=== PATIENT | female | born 1975 | race American Indian/Alaskan Native ===

== ENCOUNTER 2019-08-19 09:00 | Observation (INO) | payer OTHER ==
--- NOTE | 2019-08-17 09:21 | Anesthesia Consultation ---
Anesthesia Consult and Med Hx Date of service: 08/19/19 - Airway Anesthetic Teeth Evaluation: Good ROM Head & Neck: Adequate Mental/Hyoid Distance: Adequate Mallampati Class: Class III Intubation Access Assessment: Good - Pre-Operative Health Status ASA Pre-Surgery Classification: ASA1 Proposed Anesthetic Plan: General Nerve Block: TAP - Pulmonary Hx Smoking: No Hx Respiratory Symptoms: No (+2FS) - Central Nervous System Hx Psychiatric Problems: No - Hematic Hx Anemia: Yes - Other Systems Hx Alcohol Use: Yes (Occas) Hx Cancer: No
[2019-08-17 09:28] LABS: Basophils % (Auto) 0.7 % (0.0-1.8); Eosinophils # (Auto) 0.3 K/mm3 (0.0-0.4); Eosinophils % (Auto) 5.1 % (0.0-4.3); Hematocrit 37.7 % (30.3-42.9); Hemoglobin 12.2 gm/dl (10.1-14.3); Lymphocytes # (Auto) 2.1 K/mm3 (1.2-5.4); Lymphocytes % (Auto) 39.8 % (13.4-35.0); Mean Corpuscular HGB Conc 32 % (30-34); Mean Corpuscular Volume 85 fl (79-97); Monocytes # (Auto) 0.5 K/mm3 (0.0-0.8); Monocytes % (Auto) 8.7 % (0.0-7.3); Platelet Count 341 K/mm3 (140-440); Red Blood Count 4.42 M/mm3 (3.65-5.03); Red Cell Distribution Width 14.6 % (13.2-15.2)
--- NOTE | 2019-08-19 06:29 | Anesthesia Day of Surgery ---
Anesthesia Day of Surgery - Day of Surgery Patient Examined: Yes Patient H&P Reviewed: Yes Patient is NPO: Yes Beta Blockers: No Cardiac Clearance: No Pulmonary Clearance: No Adrian's Test: N/A
--- NOTE | 2019-08-19 07:16 | History and Physical Report ---
History of Present Illness Date of examination: 08/19/19 Date of admission: August 19, 2019 Chief complaint: Dysfunctional uterine bleeding and chronic pelvic pain History of present illness: 44-year-old -0-0-2 with a history of dysfunctional uterine bleeding and c hronic pelvic pain. The patient underwent a pelvic ultrasound with a mildly enlarged uterus with evidence of leiomyomas. She has attempted medical management without significant improvement of her symptoms. The patient is elected to undergo definitive surgical management. Past History Past Medical History: other (Obesity) Past Surgical History: section, myomectomy Social history: - Obstetrical History : 2 Para: 2 Hx # Term Pregnancies: 2 Number of Pregnancies: 0 Spontaneous Abortions: 0 Induced : 0 Number of Living Children: 2 Medications and Allergies Allergies Allergy/AdvReac Type Severity Reaction Status Date / Time acetaminophen [From Percocet] Allergy Itching Verified 08/12/19 12:02 oxycodone [From Percocet] Allergy Itching Verified 08/12/19 12:02 Home Medications Medication Instructions Recorded Confirmed Last Taken Type Ferrous Sulfate [Iron 325 MG] 325 mg PO BID 08/12/19 08/12/19 Unknown History Naproxen [Naprosyn] 500 mg PO Q6H PRN 08/12/19 08/12/19 Unknown History Active Meds: Active Medications Celecoxib (Celebrex) 400 mg PO PREOP NR Stop: 08/19/19 23:00 Gabapentin (Gabapentin) 300 mg PO PREOP NR Stop: 08/19/19 23:00 Lactated Ringer's (Lactated Ringers) 1,000 mls @ 125 mls/hr IV DIRECT KATY Midazolam HCl (Versed) 2 mg IV PREOP NR Stop: 08/19/19 23:59 Review of Systems All systems: negative Genitourinary: vaginal bleeding, pelvic pain - Vital Signs Vital signs: Vital Signs Temp Pulse Resp BP Pulse Ox 98.2 F 78 20 141/93 99 08/17/19 09:30 08/17/19 09:30 08/17/19 09:30 08/17/19 09:30 08/17/19 09:30 Temp Pulse Resp BP Pulse Ox 98.2 F 78 20 141/93 99 08/17/19 09:30 08/17/19 09:30 08/17/19 09:30 08/17/19 09:30 08/17/19 09:30 - Physical Exam Breasts: Positive: deferred Cardiovascular: Regular rate Lungs: Positive: Clear to auscultation Results Result Diagrams: 08/17/19 08:40 All other labs normal. Assessment and Plan - Patient Problems (1) Leiomyoma Status: Acute Plan to address problem: Scheduled to undergo a robotic hysterectomy and bilateral salpingectomy (2) Dysfunctional uterine bleeding Status: Acute (3) Chronic pelvic pain in female Status: Acute
[~2019-08-19 09:00] MED LIST: ACETAMINOPHEN 500 MG TAB PO ONE; BUPIVACAINE-EPINEPHRINE/PF 0.25%-1:200,000 (30 ML) VIAL INFILTRATI ONE; CELECOXIB 200 MG CAP PO NR; GABAPENTIN 300 MG CAP PO NR; HYDROmorphone 1 MG/1 ML INJ ONE; LACTATED RINGERS 1,000 ML IV SCH; LIDOCAINE MPF (2%) 20 MG/1 ML VIAL 5 ML ONE; MAGNESIUM OXIDE 400 MG TAB PO ONE; MIDAZOLAM 2 MG/2 ML INJ IV NR; NEOMY 40 MG/POLYMYXIN B 200,000 UNITS/ML (GU) AMPULE IR ONE; ONDANSETRON 4 MG/2 ML INJ ONE; ROCURONIUM 50 MG/5 ML INJ IV ONE; SODIUM CHLORIDE 0.9% IRR 1,500 ML BOTTLE IR ONE; SODIUM CHLORIDE 0.9% IRRIG SOLN 2000 ML IR ONE; SUCCINYLCHOLINE CHLORIDE 200 MG/10 ML INJ MDV ONE; ceFAZolin/Water 2 GM/20 ML 2 GM/20 ML SYRINGE IV NR; dexAMETHasone 20 MG/5 ML VIAL ONE; dexAMETHasone 4 MG/ML VIAL ONE; fentaNYL 100 MCG/2 ML INJ IV ONE; propofoL 200 MG/20 ML VIAL IV ONE
[2019-08-19] MEDS ORDERED: LACTATED RINGERS 1,000 ML ONE (09:28)
[2019-08-19] MEDS ORDERED: ROCURONIUM 50 MG/5 ML INJ IV ONE (09:45)
[2019-08-19] MEDS ORDERED: NEOSTIGMINE 10MG/10 ML INJ MDV ONE (10:32)
[2019-08-19] MEDS ORDERED: GLYCOPYRROLATE 0.4 MG/2 ML INJ ONE (10:32)
--- NOTE | 2019-08-19 10:34 | Operative Report ---
Operative Report Operative Report: Date of surgery: August 19, 2019 Preoperative diagnoses: Symptomatic uterine fibroids; dysfunctional uterine ble eding; pelvic pain Postoperative diagnoses: Same as above Procedure: Robotic hysterectomy; bilateral salpingectomy; lysis of adhesions Surgeon: Pooja Ayala M.D. Teacher Hearing Impaired: Whitney Murray Anesthesia: Gen. endotracheal anesthesia Estimated blood loss: 500 mL Pathology: Uterus, cervix, leiomyomas, bilateral tubes Indication: 44-year-old -0-0-2 with a history of symptomatic uterine fibroids. The patient elected to undergo definitive surgical management. Procedure: The patient was taken to the operating room and given general endotracheal anesthesia without complication. She is prepped and draped in a normal sterile fashion. A bivalve speculum was placed in the patient's vagina and a single- tooth tenaculum placed on the anterior lip of the cervix. The uterus was sounded with the uterine sound. A [employer] uterine manipulator was placed in the bivalve speculum was then removed. Attention was then turned to the patient's abdomen where a millimeter supra umbilical skin incision was then made. A Veress needle was placed and peritoneal entry was verified water-filled syringe. Insufflation of the peritoneal cavity was performed with CO2 gas. The 12 mm trocar was then placed under direct visualization. An additional 8 mm trocar was placed on the patient's left and right lateral side just opposite of the supraumbilical trocar. An additional 8 mm right lateral trocar was then placed as the accessory port. The supraumbilical 12 mm trocar site was closed with the Yevgeniy Malik device and 0-vicryl suture. The patient was then placed in steep Trendelenburg. The da Chivo robot was then engaged. A fenestrated forcep was placed in arm 2 and a vessel sealer was placed in arm 1. General survey revealed multiple omental adhesions to the anterior abdominal wall. Extensive lysis of adhesions had to be performed prior to visualizing the uterus which was markedly enlarged with multiple leiomyoma. The vesicouterine peritoneum was densely adherent to the lower uterine segment. There was noted to be adhesions in the anterior cul-de-sac as well. The surgeon then transferred to the surgical console. The monopolar scissors were used to lyse the anterior adhesions to the anterior aspect of the uterus. The mesosalpinx was then isolated on the right. The vessel sealer was used to coagulate the mesosalpinx which was then transected. The tube was transected from the ovary. The tubo- ovarian ligament was then coagulated and transected. The round ligament was then coagulated and transected also. The vesicouterine peritoneum was then entered from the patient's right side. The uterine vessels were then coagulated with the vessel sealer. The vessels were then transected . Attention was then turned to the patient's left side where the tubo-ovarian ligament and mesosalpinx were again isolated coagulated and transected. The vesical peritoneum was then entered from the left and joined in the midline. Peritoneum was reflected off of the lower uterine segment. Uterine vessels were then coagulated and then transected. The blood supply to the uterus was adequately contained, a posterior colpotomy was made. The V care ring was visualized. Posterior colpotomy was created with the monopolar scissors. The incision was continued circumferentially until anterior colpotomy was made. The cervix and uterus were amputated from the vaginal cuff. 2 leiomyomas had to be removed in order to decompress the uterus. The uterus was also bivalved to facilitate delivery through the vagina. The uterus was then removed along with the tubes bilaterally through the vagina and a warm laparotomy sponge was placed and maintain the pneumoperitoneum. The vaginal cuff was then closed in a running fashion with V lock suture. Irrigation of the pelvis was performed. Hemoblast was applied to the incision. The skin was then reapproximated with 4-0 Monocryl. The tissue was sent to pathology which included the cervix, leiomyomas, bilateral tubes and uterus. The patient was then successfully extubated. She was then taken to the recovery room in stable condition. All sponge laps and needle counts were correct x2.
[2019-08-19] MEDS ORDERED: MORPHINE 4 MG/1 ML INJ IV PRN (10:35)
[2019-08-19] MEDS ORDERED: diphenhydrAMINE 25 MG CAP PO PRN (10:35)
[2019-08-19] MEDS ORDERED: ONDANSETRON 4 MG/2 ML INJ IV PRN ×2 (10:35→11:09)
[2019-08-19] MEDS ORDERED: IBUPROFEN 800 MG TAB PO PRN (10:35)
[2019-08-19] MEDS ORDERED: ZOLPIDEM 5 MG TAB PO PRN (10:35)
[2019-08-19] MEDS ORDERED: ACETAMINOPHEN 325 MG TAB PO PRN (10:35)
[2019-08-19] MEDS ORDERED: HYDROmorphone 1 MG/1 ML INJ ONE ×2 (11:02→11:26)
[2019-08-19] MEDS: HYDROmorphone 1 MG/1 ML INJ IV PRN ×4 (11:03→11:37)
[2019-08-19] MEDS: KETOROLAC 30 MG/1 ML INJ IV SCH ×3 (11:07→23:26)
--- NOTE | 2019-08-19 14:38 | Post Anesthesia Evaluation ---
- Post Anesthesia Evaluation Patient Participated: Yes Airway Patent: Yes Stable Respiratory Function: Yes Nausea/Vomiting: No Temp > 96.8F: Yes Pain Manageable: Yes Adequeate Hydration: Yes Anesthesia Complications: No Block Receding Appropriately: Not Applicable Patient on Ventilator: No
[2019-08-19] MEDS: HYDROmorphone 2 MG TAB PO PRN ×3 (15:20→23:26)
[2019-08-19] MEDS: D5W/LACTATED RINGERS 1,000 ML IV SCH (19:18)
[2019-08-20] MEDS: D5W/LACTATED RINGERS 1,000 ML IV SCH (01:51)
[2019-08-20 06:09] LABS: Hematocrit 31.2 % (30.3-42.9); Hemoglobin 9.8 gm/dl (10.1-14.3)
[2019-08-20] MEDS: KETOROLAC 30 MG/1 ML INJ IV SCH (06:40)
[2019-08-20] MEDS: HYDROmorphone 2 MG TAB PO PRN ×2 (06:40→14:04)
[2019-08-20] MEDS ORDERED: SIMETHICONE 80 MG CHEW TAB PO PRN (09:00)
--- NOTE | 2019-08-20 09:26 | Progress Note ---
Assessment and Plan - Patient Problems (1) Leiomyoma Current Visit: No Status: Acute Plan to address problem: Prepare to discharge patient home once she is able to void and tolerate solid foods (2) Dysfunctional uterine bleeding Current Visit: No Status: Acute (3) Chronic pelvic pain in female Current Visit: No Status: Acute Subjective - Subjective Date of service: 08/20/19 Interval history: The patient reports having some gas pain. Findings of her surgery were discussed with her. The patient denies flatus or voiding after removal of Hodge. She denies any nausea vomiting Patient reports: appetite normal Objective - Vital Signs Latest vital signs: Vital Signs Temp Pulse Resp BP BP Pulse Ox 08/20/19 05:27 97.9 F 78 20 118/65 97 08/19/19 23:20 98.8 F 98 H 20 130/66 94 08/19/19 20:12 98.2 F 100 H 20 147/80 96 08/19/19 12:33 99.2 F 75 16 117/68 98 08/19/19 12:29 98 08/19/19 11:45 69 16 123/67 99 08/19/19 11:30 98.7 F 65 16 114/68 99 08/19/19 11:15 67 18 135/72 100 08/19/19 11:05 70 18 134/74 100 08/19/19 11:00 82 18 140/84 100 08/19/19 10:55 97.6 F 86 20 147/82 99 Intake and Output 08/19/19 08/20/19 08/20/19 22:59 06:59 14:59 Intake Total 360 938.75 Output Total 500 1000 Balance -140 -61.25 Intake: IV 818.75 D5lr 1,000 ml @ 125 mls/ 818.75 hr IV DIRECT KATY Rx#: [id number] Oral 360 120 Output: Urine 500 1000 Indwelling Catheter 500 1000 Other: Total, Intake Amount 240 120 Total, Output Amount 200 1000 Voiding Method Indwelling Catheter - Exam Abdomen: Present: normal appearance - Labs Labs: Abnormal lab results 08/20/19 Range/Units 05:37 Hgb 9.8 L (10.1-14.3) gm/dl
--- NOTE | 2019-08-20 09:27 | Discharge Summary ---
Providers - Providers Date of Admission: 08/19/19 10:35 Date of discharge: 08/20/19 Attending physician: NURY COWAN Primary care physician: MYLA CASTILLO Hospitalization Reason for admission: other (Symptomatic uterine fibroid) Procedure: other Discharge diagnosis: other (Symptomatic uterine fibroids) Hospital course: The patient was admitted the day of surgery and underwent a robotic hysterectomy for symptomatic uterine fibroids. Please see operative note for details of surgery. Her postoperative course was uneventful. Condition at discharge: Good Disposition: [id number] TO HOME OR SELFCARE - Discharge Diagnoses (1) Leiomyoma Status: Acute (2) Dysfunctional uterine bleeding Status: Acute (3) Chronic pelvic pain in female Status: Acute Plan - Discharge Medications Prescriptions: Docusate Sodium [Colace] 100 mg PO BID PRN #60 capsule PRN Reason: Constipation Hydromorphone HCl [Dilaudid] 4 mg PO Q8H PRN #30 tablet PRN Reason: Pain, Mild (1-3) Ferrous Sulfate [Feosol 325 MG tab] 325 mg PO QDAY #30 tablet Ibuprofen [Motrin] 800 mg PO Q8HR PRN #60 tablet PRN Reason: Pain, Mild (1-3) - Provider Discharge Summary Activity: no sex for 6 weeks, no heavy lifting 4 weeks, no strenuous exercise Diet: routine Instructions: routine Additional instructions: [] Smoking cessation referral if applicable(refer to patient education folder for contact #) [] Refer to [facility] Booklet Call your doctor immediately for: * Fever > 100.5 * Heavy vaginal bleeding ( >1 pad per hour) * Severe persistent headache * Shortness of breath * Reddened, hot, painful area to leg or breast * Drainage or odor from incision. * Keep incision clean and dry at all times and follow doctor's instructions regarding bathing/showering Schedule follow-up with Dr. Cowan in 4 weeks - Follow up plan
[2019-08-20 17:05] VITALS: BP 132/89
== END 2019-08-20 17:05 | disposition home or self-care (01) ==
LOC: OR 09:00 → OB 10:35
PROVIDERS: ADMIT Obstetrics & Gynecology; ATTEND Obstetrics & Gynecology
DX: Z03.818 Encounter for observation for suspected exposure to other biological agents ruled out (principal); D25.9 Leiomyoma of uterus, unspecified; N93.8 Other specified abnormal uterine and vaginal bleeding; N72 Inflammatory disease of cervix uteri; E66.9 Obesity, unspecified; Z88.5 Allergy status to narcotic agent; Z88.8 Allergy status to other drugs, medicaments and biological substances; Z68.42 Body mass index [BMI] 45.0-49.9, adult
CPT/HCPCS: 36415; 58573; 64450; 84703; 85014; 85018; 85025; 86850; 86900; 86901; 88307; 88342; 96374; 96375; 96376; A4217; G0378; J0330; J1100; J1170; J1885; J2250; J2270; J2405; J2704; J2710; J3010; J7120; J7121; S2900; U0003; 88302